=== PATIENT | female | born 1985 | race Two or more races ===

== ENCOUNTER 2018-05-27 11:01 | Emergency (ER) | payer OTHER ==
[~2018-05-27] VITALS: Ht 152.4 cm; Wt 83.6 kg
[2018-05-27 11:10] VITALS: BP 146/70
[2018-06-01] MEDS ORDERED: IBUP200C8 PO ×2 (15:29→15:53)
[2018-06-01] MEDS ORDERED: MULT-658 PO (15:29)
[2018-06-01] MEDS ORDERED: ACET-1600 PO (15:29)
== END 2018-05-27 12:20 | disposition home or self-care (01) ==
LOC: ED 12:00
DX: Z00.00 Encounter for general adult medical examination without abnormal findings (principal); Z88.0 Allergy status to penicillin
CPT/HCPCS: 99281

== ENCOUNTER → 2018-06-01 | Outpatient (CLI) | payer OTHER ==
[~2018-06-01] MED LIST: ACET-1600 PO; IBUP200C8 PO; MULT-658 PO
[2018-06-01 16:27] LABS: ANION GAP 9 mmol/L (5-15); CALCIUM 9.4 mg/dL (8.5-10.1); CHLORIDE 109 mmol/L (98-107); CREATININE 0.74 mg/dL (0.55-1.02)
[2018-06-01 16:30] LABS: BASOPHILS # (AUTO) 0.07 x10^3/uL (0-0.1); BASOPHILS % (AUTO) 1 % (0-1); EOSINOPHILS # (AUTO) 0.12 x10^3/uL (0-0.4); EOSINOPHILS % (AUTO) 2 % (1-7); LYMPHOCYTES # (AUTO) 2.22 x10^3/uL (1-3.4); LYMPHOCYTES % (AUTO) 29 % (22-44); MD NO; MEAN CORPUSCULAR HEMOGLOBIN 23.8 pg (27.0-34.8); MEAN CORPUSCULAR HGB CONC 32.9 g/dL (32.4-35.8); MEAN CORPUSCULAR VOLUME 72.2 fL (80-100); MEAN PLATELET VOLUME 8.8 fL (7.4-10.4); MONOCYTES # (AUTO) 0.52 x10^3/uL (0.2-0.8); MONOCYTES % (AUTO) 7 % (2-9); NEUTROPHILS # (AUTO) 4.83 x10^3/uL (1.8-6.8); NEUTROPHILS % (AUTO) 62 % (42-75); PLATELET COUNT 316 x10^3/uL (130-400); RED BLOOD COUNT 4.93 x10^6/uL (3.82-5.3); RED CELL DISTRIBUTION WIDTH 15.1 % (9.6-15.2)
== END | disposition home or self-care (01) ==
LOC: STAR 14:54
PROVIDERS: ATTEND Surgery
DX: Z01.812 Encounter for preprocedural laboratory examination (principal); K80.20 Calculus of gallbladder without cholecystitis without obstruction
CPT/HCPCS: 36415; 80048; 85025

== ENCOUNTER 2018-06-10 07:03 | Day surgery (SDC) | payer OTHER ==
[~2018-06-10] VITALS: Ht 157.5 cm; Wt 83.0 kg
[~2018-06-10 07:03] MED LIST changes: +BUPIVACAINE/PF-EPI 0.5% 1:200K ONE; +INDOCYANINE GREEN 25 MG VIAL ONE
[2018-06-10] MEDS ORDERED: ACETAMINOPHEN 500 MG TABLET PO ONE (07:30)
[2018-06-10] MEDS ORDERED: SCOPOLAMINE PATCH, 1.5MG PATCH.TD72 TD ONE (07:30)
[2018-06-10] MEDS ORDERED: GABAPENTIN 300 MG CAPSULE PO ONE (07:30)
[2018-06-10] MEDS ORDERED: ONDANSETRON ODT 8 MG PO ONE (07:30)
[2018-06-10 07:42] VITALS: BP 143/75
[2018-06-10] MEDS ORDERED: LACTATED RINGERS 1,000 ML IV SCH (08:28)
[2018-06-10 08:34] LABS: HCG UR SG 1.012 (1.003-1.030)
[2018-06-10] MEDS ORDERED: FENTANYL PF 100 MCG/2ML ONE ×2 (08:36→10:25)
[2018-06-10] MEDS ORDERED: MIDAZOLAM 1 MG/ML, 2ML ONE (08:36)
[2018-06-10] MEDS ORDERED: MIDAZOLAM 1 MG/ML, 2ML IV PRN (10:00)
[2018-06-10] MEDS ORDERED: OXYcodone 5 MG/5 ML ORAL.SOL UDC PO PRN (10:00)
[2018-06-10] MEDS ORDERED: HYDROmorphone 1 MG/ML, 1ML IV PRN (10:00)
[2018-06-10] MEDS ORDERED: MEPERIDINE/PF 25MG/0.5ML IVPush PRN (10:00)
[2018-06-10] MEDS ORDERED: ONDANSETRON ODT 8 MG PO PRN (10:00)
[2018-06-10] MEDS ORDERED: LABETALOL 5MG/ML, 20ML IV PRN (10:00)
[2018-06-10] MEDS ORDERED: ALBUTEROL/IPRATROPIUM 2.5MG/0.5MG, 3 ML NPPB PRN (10:00)
[2018-06-10] MEDS ORDERED: PROMETHAZINE 25 MG SUPP PR PRN (10:00)
[2018-06-10] MEDS ORDERED: DEXAMETHASONE 4 MG/ML, 1ML ONE (10:09)
[2018-06-10] MEDS ORDERED: SUCCINYLCHOLINE 20 MG/ML, 10ML ONE (10:09)
[2018-06-10] MEDS ORDERED: ONDANSETRON 2MG/ML, 2ML ONE (10:09)
[2018-06-10] MEDS ORDERED: NEOSTIGMINE 1 MG/ML, 10ML ONE (10:09)
[2018-06-10] MEDS ORDERED: PROPOFOL 10 MG/ML, 20ML ONE (10:09)
[2018-06-10] MEDS ORDERED: GLYCOPYRROLATE 0.2MG/1ML, 5ML ONE (10:09)
[2018-06-10] MEDS ORDERED: CEFAZOLIN 1,000 MG ONE (10:09)
[2018-06-10] MEDS ORDERED: ROCURONIUM 10MG/ML,5ML ONE (10:09)
[2018-06-10] MEDS ORDERED: OXYcodone 5 MG/5 ML ORAL.SOL UDC ONE (10:26)
[2018-06-10] MEDS: FENTANYL PF 100 MCG/2ML IV PRN ×4 (10:29→10:58)
[2018-06-10] MEDS ORDERED: HYDROcodone/APAP 5/325 TABLET PO PRN (10:30)
[2018-06-10] MEDS ORDERED: MORPHINE SULFATE 4 MG/ML, 1ML IVPush PRN (10:30)
== END 2018-06-10 13:00 | disposition home or self-care (01) ==
LOC: OUT 07:03
PROVIDERS: ATTEND Surgery
DX: K80.10 Calculus of gallbladder with chronic cholecystitis without obstruction (principal); J45.909 Unspecified asthma, uncomplicated; K21.9 Gastro-esophageal reflux disease without esophagitis; E66.9 Obesity, unspecified; Z68.33 Body mass index [BMI] 33.0-33.9, adult; Z88.1 Allergy status to other antibiotic agents; Z91.040 Latex allergy status; Z79.899 Other long term (current) drug therapy
CPT/HCPCS: 47562; 81025; 88304; J0330; J0690; J1100; J2250; J2405; J2704; J2710; J3010; J3490; J7120; Q0162; S2900